=== PATIENT | female | born 1990 | race African-American/Black ===

== ENCOUNTER 2017-03-25 21:11 | Emergency (ER) | payer MEDICAID ==
[~2017-03-25] VITALS: Ht 167.6 cm; Wt 72.7 kg
[2017-03-25] MEDS ORDERED: ACETAMINOPHEN 325MG TABLET PO STA (23:21)
[2017-03-26 00:04] LABS: BASOPHILS % 1.1 % (0.0-2.0); HEMATOCRIT. 32.3 % (36.0-48.0); HEMOGLOBIN. 10.8 g/dL (12.0-16.0); LYMPHOCYTES % 24.6 % (20.0-50.0); MEAN CORPUSCULAR HEMOGLOBIN 24.8 pg (28.0-32.0); MEAN PLATELET VOLUME 8.2 fl (7.4-10.4); MONOCYTES % 11.6 % (2.0-8.0); NEUTROPHILS % 59.7 % (40.0-76.0); PLATELET 366 x1000/uL (130-400); RED BLOOD CELL COUNT 4.37 mill/uL (4.2-5.4); RED CELL DISTRIBUTION WIDTH 15.4 % (11.6-14.6)
[2017-03-26 00:10] LABS: CHLORIDE 104 mEq/L (98-107)
[2017-03-26 00:27] LABS: CARBON DIOXIDE 26 mEq/L (21-32)
[2017-03-26 00:36] LABS: B-HCG QUANTITATIVE 26455 mIU/mL (<3)
[2017-03-26 01:19] LABS: CLARITY URINE CLEAR (CLEAR); COLOR URINE YELLOW (YELLOW); GLUCOSE URINE NEGATIVE (NEGATIVE); KETONES URINE NEGATIVE (NEGATIVE); LEUKOCYTE ESTERASE URINE NEGATIVE (NEGATIVE); NITRITE URINE NEGATIVE (NEGATIVE); OCCULT BLOOD URINE 3+ (NEGATIVE); PH URINE 5.5 (4.5-8.0); PROTEIN URINE NEGATIVE (NEGATIVE); UROBILINOGEN URINE 0.2 E.U./dL (0.2-1.0)
[2017-03-26] MEDS ORDERED: KETOROLAC 30MG/ML VIAL IM ONE (02:30)
[2017-03-26 02:36] VITALS: BP 106/55
== END 2017-03-26 02:39 | disposition home or self-care (01) ==
LOC: ER 21:32
DX: O02.1 Missed abortion (principal); S00.83XA Contusion of other part of head, initial encounter; R51 Headache; R10.9 Unspecified abdominal pain; D64.9 Anemia, unspecified; Y07.03 Male partner, perpetrator of maltreatment and neglect; Y04.8XXA Assault by other bodily force, initial encounter; Y93.89 Activity, other specified; Y92.89 Other specified places as the place of occurrence of the external cause
CPT/HCPCS: 36415; 70450; 76801; 80053; 81001; 84702; 85025; 86850; 86900; 99285

== ENCOUNTER 2017-04-07 12:27 | Emergency (ER) | payer MEDICAID ==
[~2017-04-07] VITALS: Ht 170.2 cm; Wt 80.0 kg
[2017-04-07 14:40] LABS: BASOPHILS % 0.5 % (0.0-2.0); EOSINOPHILS % 5.8 % (0.0-5.0); HEMATOCRIT. 29.3 % (36.0-48.0); HEMOGLOBIN. 9.8 g/dL (12.0-16.0); LYMPHOCYTES % 23.2 % (20.0-50.0); MEAN CORPUSCULAR HEMOGLOBIN 24.7 pg (28.0-32.0); MEAN PLATELET VOLUME 8.2 fl (7.4-10.4); MONOCYTES % 10.6 % (2.0-8.0); NEUTROPHILS % 59.9 % (40.0-76.0); PLATELET 309 x1000/uL (130-400); RED BLOOD CELL COUNT 3.96 mill/uL (4.2-5.4); RED CELL DISTRIBUTION WIDTH 15.6 % (11.6-14.6)
[2017-04-07 14:52] LABS: CHLORIDE 108 mEq/L (98-107)
[2017-04-07 15:05] LABS: CARBON DIOXIDE 25 mEq/L (21-32)
[2017-04-07 15:17] LABS: B-HCG QUANTITATIVE 2236 mIU/mL (<3)
[2017-04-07 16:20] VITALS: BP 117/55
== END 2017-04-07 16:46 | disposition home or self-care (01) ==
LOC: ER 12:57
DX: O03.4 Incomplete spontaneous abortion without complication (principal); R03.0 Elevated blood-pressure reading, without diagnosis of hypertension; N83.201 Unspecified ovarian cyst, right side; Z91.410 Personal history of adult physical and sexual abuse
CPT/HCPCS: 36415; 76801; 80048; 81025; 84702; 85025; 86850; 86900; 99285